=== PATIENT | male | born 1970 | race Caucasian/White ===

== ENCOUNTER 2019-06-14 10:15 | Outpatient (CLI) | payer OTHER, BC, SELFPAY ==
--- NOTE | 2019-06-14 15:00 | DI.RAD_ITS ---
EXAM: XR SHOULDER RT COMPLETE 2+V INDICATION: right shoulder pain s/p injury, m25.511. COMPARISON: No exams were available for comparison TECHNIQUE: 2D digital imaging was performed. FINDINGS: No fracture or dislocation is seen. There is spurring at the AC joint and inferior glenoid. Humeral head is normally positioned. No tendon or joint space calcifications are seen. IMPRESSION: Mild degenerative changes. No acute abnormality. DATA REPOSITORY: RADIATION DOSE DELIVERED:
== END 2019-06-14 10:35 ==
PROVIDERS: PCP Nurse Practitioner; Visit Provider Nurse Practitioner
DX: M25.511 Pain in right shoulder (principal); M19.011 Primary osteoarthritis, right shoulder
CPT/HCPCS: 73030

== ENCOUNTER 2020-05-06 17:08 | Outpatient (REF) | payer BC, SELFPAY ==
[2020-05-08 18:28] LABS: COVID-19 RT-PCR Result NEGATIVE (Negative)
== END 2020-05-06 17:28 ==
LOC: LBN 17:08
PROVIDERS: PCP Nurse Practitioner; Visit Provider Nurse Practitioner Family
DX: Z11.52 Encounter for screening for COVID-19 (principal)
CPT/HCPCS: U0003

== ENCOUNTER 2020-05-08 04:45 | Outpatient (CLI) | payer BC, SELFPAY ==
[2020-05-08 12:59] LABS: Abs Immature Grans 0.01 10^3/uL (0.0-0.06); Absolute Basophil Count 0.03 10^3/uL (0.0-0.2); Absolute Eosinophil Count 0.07 10^3/uL (0.0-0.7); Absolute Lymphocyte Count 1.93 10^3/uL (1.2-3.4); Absolute Monocyte Count 0.45 10^3/uL (0.1-0.8); Absolute Neutrophil Count 2.14 10^3/uL (1.2-6.7); Basophils % 0.6; Eosinophils % 1.5; HCT 40.1 % (40.0-50.0); Immature Grans % 0.2; Lymphocytes % 41.7; MCH 29.5 pg (27.0-33.0); MCHC 34.9 % (32.0-36.0); MCV 84.6 fL (80-95); Monocytes % 9.7; Neutrophils % 46.3; Nucleated RBC 0 %; Platelet Count 195 10^3/uL (130-400); RBC 4.74 10^6/uL (4.36-5.78); RDW 12.2 % (11.8-14.1); RDW-SD 37.1 fL; WBC 4.63 10^3/uL (4.4-10.8)
[2020-05-08 13:38] LABS: Total Iron Binding Capacity 271 ug/dL (250-450)
[2020-05-08 13:44] LABS: Ferritin 253 ng/mL (26-388); TSH (W/Ref FT4) 2.38 uIU/mL (0.36-3.74)
== END 2020-05-08 05:05 ==
PROVIDERS: PCP Nurse Practitioner; Visit Provider Nurse Practitioner Family
DX: R53.83 Other fatigue (principal)
CPT/HCPCS: 36415; 82728; 83550; 84443; 85025

== ENCOUNTER 2020-12-17 16:11 | Outpatient (REF) | payer BC, SELFPAY ==
[2020-12-18 18:37] LABS: PSA, Screening 2.3 ng/mL (0.0-2.5)
== END 2020-12-17 16:12 | disposition home or self-care (01) ==
LOC: LBN 16:11
PROVIDERS: PCP Nurse Practitioner; Visit Provider Nurse Practitioner Gerontology
DX: N40.1 Benign prostatic hyperplasia with lower urinary tract symptoms (principal); Z12.5 Encounter for screening for malignant neoplasm of prostate
CPT/HCPCS: 84153

== ENCOUNTER 2021-04-09 09:31 | Emergency (ER) | payer BC, SELFPAY ==
[2021-04-09 09:38] VITALS: BP 128/83; PULSE 83; RESP 18; TEMP 36.6; O2SAT 96
[2021-04-09 10:06] LABS: Lactate 0.9 mmol/L (0.6-1.4)
[2021-04-09 10:08] LABS: Abs Immature Grans 0.02 10^3/uL (0.0-0.06); Absolute Basophil Count 0.01 10^3/uL (0.0-0.2); Absolute Lymphocyte Count 0.76 10^3/uL (1.2-3.4); Absolute Monocyte Count 0.47 10^3/uL (0.1-0.8); Absolute Neutrophil Count 2.02 10^3/uL (1.2-6.7); Basophils % 0.3; HCT 42.8 % (40.0-50.0); HGB 14.7 g/dL (13.5-17.5); Immature Grans % 0.6; Lymphocytes % 23.2; MCH 29.2 pg (27.0-33.0); MCHC 34.3 % (32.0-36.0); MCV 85.1 fL (80-95); MPV 9.1 fL (8.0-11.0); Monocytes % 14.3; Neutrophils % 61.6; Nucleated RBC 0 %; Platelet Count 106 10^3/uL (130-400); RBC 5.03 10^6/uL (4.36-5.78); RDW-SD 37.2 fL; WBC 3.28 10^3/uL (4.4-10.8)
--- NOTE | 2021-04-09 10:09 | ED.GENADUL_ITS ---
Discharge Plan Disposition Patient Disposition: HOME Condition: Improving Discharge Details Clinical Impression: COVID-19, Acute dehydration, Caffeine withdrawal Primary Care Provider: Latha Salas ED Provider: Mario Adam Home Meds and New Rx's Prescriptions: New ondansetron 4 mg tablet,disintegrating 4 mg PO Q6H PRN (Reason: nausea and vomiting) Qty: 14 RF: 0 Continued tamsulosin [Flomax] 0.4 mg capsule 0.4 mg PO DAILY Qty: 90 RF: 3 Discharge Instructions Instructions: Dehydration (ED), Viral Syndrome (ED) Additional Instructions: Please stay well-hydrated and increase food intake as tolerated. For continued headache feel free to take [id number] Excedrin Migraine as this has caffeine and your caffeine withdrawal may be contributing to your headache symptoms. If you have any new or worsening symptoms, neurological changes, difficulty breathing or further concerns please return to the emergency department for reevaluation. Please remain quarantine until your COVID-19 results are available which is typically 24 to 48 hours. Discharge Data Discharge Date/Time-TO BE ENTERED AT DEPARTURE: 04/09/21 14:11 Medical Decision Making Patient presenting to the emergency department for chief complaint of headache and significant malaise. Patient reports home testing positive Covid and over the last 3 days has had change in taste and smell and now having some nausea with food intake. Physical exam is unremarkable for any respiratory distress or abnormal findings, no meningeal signs, patient is stable and otherwise well in appearance. Plan to check labs and give patient fluids due to concern of dehydration and will treat with NSAIDs and zofran for current symptoms. Review of labs is as expected for COVID-19. Pt reassessed and feels less nausea but STUART remains. Will further hydrate and treat pain. Pt PO challenged and able to tolerated PO intake. After further discussion pt has not had caffeine in 3 days which he normally drinks 2 pots of coffee each day. Plan to treat with Fioricet and DC home. After discussion of diagnosis and plan of care patient has no further needs, questions, or concerns and states clear understanding to return to the emergency department for any worsening symptoms. HPI General Mode of arrival: ambulatory . Date/Time Provider Initiated Documentation: 04/09/21 09:33 . Limitations to Documentation: no limitations . Information obtained by: patient . History of Present Illness 51 year old M presents to the emergency department with the chief complaint of Covid positive Headache and Nausea, described as moderate, with intensity rated at 8. Quality is described as aching and constant, and is localized to the head. Patient reports no radiation. Patient started experiencing this day(s) (4) and it has been constant. No relieving factors improve symptom(s), No exacerbating factors reported . Patient notes fever/chills and loss of appetite; denies cough. Patient did receive the following treatments prior to arrival, NSAID Related Data Home Medications Medication Instructions Recorded Confirmed tamsulosin 0.4 mg capsule 0.4 mg PO DAILY #90 cap 02/25/21 04/09/21 ondansetron 4 mg PO Q6H PRN #14 tab 04/09/21 Previous Rx's Medication Instructions Recorded tamsulosin 0.4 mg capsule 0.4 mg PO DAILY #90 cap 02/25/21 ondansetron 4 mg PO Q6H PRN #14 tab 04/09/21 Allergies Allergy/AdvReac Type Severity Reaction Status Date / Time Penicillins Allergy Unknown Verified 04/09/21 09:42 General Stated Complaint: Nausea/Vomit/Diar TAYO: 3 Review of Systems Constitutional Constitutional: Reports chills, Reports fatigue, Reports headache(s), Reports lethargy, Reports malaise and Denies weakness ENT Ears, Nose, Mouth, and Throat: Reports headache(s), Reports nasal congestion and Denies sore throat Cardiovascular Cardiovascular: Denies chest pain and Denies dyspnea Respiratory Respiratory: Denies chest congestion, Denies cough and Denies dyspnea Gastrointestinal Gastrointestinal: Reports as per HPI, Denies abdominal pain, Reports nausea and Reports vomiting Genitourinary Genitourinary: Denies difficulty urinating Musculoskeletal Musculoskeletal: Denies arthralgias and Denies joint swelling Integumentary/Breasts Skin/Breast: Denies rash Neurologic Neurologic: Denies confusion, Reports headache(s) and Denies weakness Psychiatric Psychiatric: Denies confusion Endocrine Endocrine: Reports fatigue PFSH All Active Problems (Updated 04/09/21 @ 13:13 by Mario Adam NP) COVID-19 (Acute) Acute dehydration (Acute) Caffeine withdrawal (Acute) Erectile dysfunction (Acute) BPH loc w urin obs/LUTS (Acute) Screening for cholesterol level (Acute) Colon cancer screening (Acute) Dysuria (Acute) Cyst, epididymis (Acute) Fatigue (Acute) Tobacco abuse (Acute) Right shoulder pain (Acute) Family History Mother Neoplasm breast CA w/ METS Father Aneurysm ? abd, repaired Thyroid disease Social History Smoking/Tobacco Use Status: Former Tobacco Use Smoking risk assessment performed?: Yes Alcohol Intake: former Drug use: Never Substance use type: does not use Do you feel safe at home: Yes Do you feel safe in your relationship?: Yes Exam Const General: cooperative Orientation: alert, awake and oriented x3 Resp Effort & Inspection: normal respiratory effort and able to speak in complete sentences Auscultation: clear to auscultation bilaterally Cardio Rate: regular rate Rhythm: regular rhythm Heart Sounds: S1 normal and S2 normal GI Palpation: soft, no hepatosplenomegaly, not firm, no guarding, no masses, no pulsatile masses, not rigid, no splenomegaly and nontender Auscultation: normal bowel sounds Neuro General: patient alert, patient awake, patient oriented x3, gait normal, moves all extremities, no meningeal signs and no focal motor deficits Cognition: normal cognition Speech: speech normal Course Vital Signs Vital signs: Vital Signs Temperature 36.6 C 04/09/21 09:38 Pulse 83 04/09/21 09:38 Respiratory Rate 18 04/09/21 09:38 Blood Pressure 128/83 04/09/21 09:38 Pulse Oximetry 96 04/09/21 09:38 Temperature 36.6 C 04/09/21 09:38 Temperature Source Oral 04/09/21 09:38 Pulse 83 04/09/21 09:38 Respiratory Rate 18 04/09/21 09:38 Respiratory Effort Non-Labored 04/09/21 09:43 Blood Pressure 128/83 04/09/21 09:38 Blood Pressure Position Sitting 04/09/21 09:38 Pulse Oximetry 96 04/09/21 09:38 Oxygen Delivery Method Room Air 04/09/21 09:38 Oxygen Flow Rate 0 04/09/21 09:38 Lab/Test Results Lab/Test Results: Laboratory Tests Range/Units 04/09/21 04/09/21 09:51 09:51 WBC (4.4-10.8) 10^3/uL 3.28 L RBC (4.36-5.78) 10^6/uL 5.03 Hgb (13.5-17.5) g/dL 14.7 Hct (40.0-50.0) % 42.8 MCV (80-95) fL 85.1 MCH (27.0-33.0) pg 29.2 MCHC (32.0-36.0) % 34.3 RDW (11.8-14.1) % 12.0 Plt Count (130-400) 10^3/uL 106 L MPV (8.0-11.0) fL 9.1 Immature Gran % 0.6 Neutrophils % 61.6 Lymphocytes % 23.2 Monocytes % 14.3 Eosinophils % 0.0 Basophils % 0.3 Nucleated RBC % % 0 Absolute Neutrophils (1.2-6.7) 10^3/uL 2.02 Absolute Lymphocytes (1.2-3.4) 10^3/uL 0.76 L Absolute Monocytes (0.1-0.8) 10^3/uL 0.47 Absolute Eosinophils (0.0-0.7) 10^3/uL 0.00 Absolute Basophils (0.0-0.2) 10^3/uL 0.01 VBG Lactate (0.6-1.4) mmol/L 0.9
[2021-04-09 10:23] LABS: ALT 19 U/L (16-63); AST 23 U/L (15-37); Albumin 3.6 g/dL (3.4-5.0); Alkaline Phosphatase 49 U/L (46-116); Anion Gap 9.3 mmol/L (3-11); BUN 18 mg/dL (7-18); Bilirubin, Total 0.8 mg/dL (0.2-1.0); CO2 27.7 mmol/L (21.0-32.0); Calcium 8.4 mg/dL (8.5-10.1); Chloride 102 mmol/L (98-107); Glucose 116 mg/dL (74-106); Lipase 151 U/L (73-393); Potassium 3.7 mmol/L (3.5-5.1); Sodium 139 mmol/L (136-145); Total Protein 7.4 g/dL (6.4-8.2)
[2021-04-09] MEDS: Normal Saline 1,000 ML 1000 ML IV ×2 (10:28→11:49)
[2021-04-09] MEDS: Ondansetron 4 MG/2 ML VIAL IVP (10:29)
[2021-04-09] MEDS: Ketorolac 15 MG/ML VIAL IVP (10:29)
[2021-04-09] MEDS: Normal Saline Flush 10 ML SYR IVP ×2 (10:30→11:49)
[2021-04-09] MEDS: ACETAMINOPHEN 1,000 MG/100 ML BTL 400 MG IVPB (11:49)
[2021-04-09 11:58] LABS: Bilirubin Small (Negative); Blood Negative (Negative); Clarity Clear (Clear); Glucose 100 mg/dL (Negative); Ketones 80 mg/dL (Negative); Leukocyte Esterase Negative (Negative); Nitrite Negative (Negative); Specific Gravity >= 1.030 (1.005-1.025)
[2021-04-09 12:05] LABS: Bacteria Negative HPF (Negative); Crystals Rare Amorphous HPF (Negative); Epithelial Cells Rare HPF (Negative); Mucus Moderate (Negative); RBC Negative HPF (0-2); WBC Negative HPF (0-5)
[2021-04-09 12:06] LABS: C & S Indicated? No; Casts 0-2 Hyaline LPF (Negative)
[2021-04-09 12:50] VITALS: BP 119/79; PULSE 77; RESP 16; TEMP 36.4; O2SAT 95
[2021-04-09 14:04] VITALS: BP 118/73; PULSE 66; RESP 16; TEMP 36.6; O2SAT 97
[2021-04-09] MEDS: Butalbital/Acetaminophen/Caffeine 50/325/40 TAB PO (14:06)
[2021-04-10 15:58] LABS: COVID-19 RT-PCR UVMMC Result Positive (Negative)
--- NOTE | 2021-04-12 09:45 | W.ED.FU ---
04/12/21 0946 Attempted to contact patient but phone number listed does not seem to be active. I did take care of patient initially and he had taken to home test that were positive and he already knew he was Covid positive via antigen testing.
== END 2021-04-09 14:11 | disposition home or self-care (01) ==
PROVIDERS: Emergency Provider Nurse Practitioner Family; PCP Nurse Practitioner
DX: U07.1 COVID-19 (principal); E86.0 Dehydration; F15.23 Other stimulant dependence with withdrawal; Z20.822 Contact with and (suspected) exposure to COVID-19; R43.8 Other disturbances of smell and taste; R11.0 Nausea
CPT/HCPCS: 36415; 80053; 83690; 96361; 96365; 96375; 99284; U0003; 81003; 81015; 83605; 85025; J0131; J1885; J2405

== ENCOUNTER 2021-10-28 16:33 | Outpatient (REF) | payer BC, SELFPAY ==
[2021-10-28 22:37] LABS: PSA, Screening 1.9 ng/mL (<=3.5)
== END 2021-10-28 16:34 | disposition home or self-care (01) ==
LOC: LBN 16:33
PROVIDERS: PCP Nurse Practitioner; Visit Provider Nurse Practitioner Gerontology
DX: N40.1 Benign prostatic hyperplasia with lower urinary tract symptoms (principal); Z12.5 Encounter for screening for malignant neoplasm of prostate
CPT/HCPCS: 84153

== ENCOUNTER 2022-02-05 06:10 | Day surgery (SDC) | payer BC, SELFPAY ==
--- NOTE | 2022-02-04 11:00 | PDOC.DSDIS_ITS ---
Discharge Plan Disposition Patient Disposition: HOME Condition: Good Discharge Details Reason For Visit: colon scope Attending Provider: Radha Good Primary Care Provider: Latha Salas Home Meds and New Rx's Prescriptions: Continued tamsulosin [Flomax] 0.4 mg capsule 0.8 mg PO DAILY Qty: 180 3RF Discontinued bisacodyl [Dulcolax (bisacodyl)] 5 mg tablet,delayed release (DR/EC) 5 mg PO ONCE Qty: 4 0RF Rx Instructions: Take according to provider's instructions for colonoscopy prep. polyethylene glycol 3350 17 gram/dose powder 17 g PO ONCE Qty: 238 0RF Rx Instructions: To be taken as directed by prescriber's office for colonoscopy prep. Discharge Instructions Additional Instructions: DSU Colonoscopy Post- Op Instructions Instructions for Everyone who is given Anesthesia: For your safety, please do the following for the next twenty-four (24) hours: *Do Not operate a motor vehicle (car, truck, motorcycle, etc.) *Do Not drink alcoholic beverages or use any recreational drugs for the first 24 hours or while taking pain medications. The medications in your body may have a reaction that can be dangerous. *Do Not make any important decisions or sign any important papers. Findings: minor diverticular Dx Sure you are moving your bowels on a regular basis and not straining to go to the bathroom Follow up: Repeat colonoscopy in 5 years time, due to family Hx Stop smoking! Colon cancer is directly related to the use of tobacco products. This will help to decrease your risk of developing colon cancer. 1. No lifting over 20 pounds or strenuous activity for the first 24 hours after your procedure. After 24 hours there are no restrictions on your activity but you may feel fatigued for a few days. 2. After you arrive home you may have a light meal and return to your normal diet as you can tolerate it without feeling sick to your stomach. 3. You may have a bloated, gaseous feeling in your belly (abdomen) after a colonoscopy. Passing gas and belching will help. Walking or lying down on your left side with your knees flexed may relieve the discomfort. Call the office at [phone] (Office) or [phone] (Hospital) right away if you notice any of the following: a.Vomiting of blood or ?coffee ground stools?. b.Rectal bleeding 1Tbsp, blood clots or continuous bleeding. c.Severe belly (abdominal) pain. d.A hard distended belly (abdomen) and an inability to pass gas. 4. Please don?t expect to have a normal BM (bowel movement) for 2-3 days after your procedure. 5. If there are questions regarding the findings of your procedure, please contact your doctor 6. If you are unable to contact your doctor with a problem, contact the hospital at [phone]. 7. Continue all your regular medications unless directed otherwise. I understand the above instructions and have no questions. Signature of Patient or Adult Escort Name of Responsible Adult Escort Signature of Nurse Date/Time Activity:: see above Diet:: see above Discharge Orders Discharge Orders: Discharge Order (Routine); Ordered 02/04/22 Ordered By: Radha Good
--- NOTE | 2022-02-04 11:01 | W.COLOREPORT ---
Colonoscopy Report Date of procedure: 02/05/22 Pre-op diagnosis general: CRC screening Post-op diagnosis procedure note: other (Very minor diverticular disease confined to the sigmoid colon ) Surgeon: Radha Good Anesthesia Type: General:No Airway Complications: None Disposition: same day Prep: Miralax/Dulcolax Retraction Time: 8 mins Procedure Description: After informed consent was obtained the patient was taken to the procedure room and placed in a left decubitous position. Monitors were applied and a time out was done. The patients name, date of , procedure, allergies to medications and metal in their body was reviewed. The patient was then sedated. Once sedated and comfortable a rectal exam was done. External exam was normal. Internal exam revealed a normal sphincter tone and no palpable masses. The prostate nl. The scope was then introduced and retrofelexed. No internal hemorrhoids were identified. The scope was then advanced to the cecum without difficulty. The TI and appendiceal orifice were identified. The prep was BB PS 3 in all segments for a total of 9 8. The scope was then slowly retracted over 8 minutes back into the rectum. There were no polyps identified today. The mucosa is pink and healthy. He does have minor diverticula confined to the sigmoid colon, with no signs of active bleeding or. The scope was removed and the patient was woken up and taken back to Same day surgery in stable condition. The patient tolerated the procedure well and there were no immediate complications. Follow up: The patient should follow up in 5 years, due to family history, unless they develop changes in bowel habits or other new gastrointestinal complaints.
[2022-02-05 06:29] VITALS: BP 111/84; PULSE 87; RESP 18; TEMP 36.6; O2SAT 99
[2022-02-05] MEDS: Lactated Ringers 1,000 ML 80 ML IV (06:42)
--- NOTE | 2022-02-05 06:46 | W.ANESPRE ---
General Info Date of Service Date Performed: 02/05/22 Height: 5 ft 10 in Weight: 90.7 kg Body Mass Index (BMI): 28.7 Surgical Procedure: Operation Date: 02/05/22 07:35 Proposed Procedure Side Surgeon francisco Good DO Meds Allergies and Home Medications Allergies Allergy/AdvReac Type Severity Reaction Status Date / Time Penicillins Allergy Unknown Verified 02/05/22 06:27 Home Medication Medication Instructions Recorded tamsulosin 0.4 mg capsule (Flomax) 0.8 mg PO DAILY #180 caps 10/28/21 Current Visit Medications: Current Medications Generic Name Dose Route Start Last Admin Trade Name Freq PRN Reason Stop Dose Admin Hyoscyamine Sulfate 0.125 mg 02/04/22 10:59 Hyoscyamine 0.125 Mg Sl/Oral/Chew SL DIRECTED PRN Ringer's Solution 1,000 mls @ 80 mls/hr 02/05/22 06:00 02/05/22 06:42 IV 02/05/22 23:59 80 mls/hr INFUSION KURT Administration IV Miscellaneous Supplies 1 each 02/05/22 06:00 Iv Access IV 02/05/22 23:59 DIRECTED KURT Ondansetron HCl 4 mg 02/04/22 10:59 Ondansetron 4 Mg/2 Ml Vial IVP Q4H PRN PRN Nausea / Vomiting Sodium Chloride 0 ml 02/05/22 06:00 Normal Saline Flush 10 Ml Syr IV 02/05/22 23:59 PRN PRN Sodium Chloride 0 ml 02/05/22 06:00 Normal Saline 10 Ml Vial IJ 02/05/22 23:59 DIRECTED PRN Sterile Water 0 ml 02/05/22 06:00 Water,Injection,Sterile 10 Ml Vial IJ 02/05/22 23:59 DIRECTED PRN PFSH Active Problems Active Problems: Problem Status Onset Code Scrotal pain N50.82 COVID-19 U07.1 Erectile dysfunction N52.9 BPH loc w urin obs/LUTS N40.1 Screening for cholesterol level Z13.220 Colon cancer screening Z12.11 Dysuria R30.0 Cyst, epididymis N50.3 Fatigue R53.83 Tobacco abuse Z72.0 Right shoulder pain M25.511 Tobacco Smoking/Tobacco Use Status: Current-Occasional Tobacco Type: cigarettes Alcohol Alcohol Intake: never Substance Use Substance use: Never Substance use type: does not use Vital Signs and Lab Results Vital Signs Most Recent Vital Signs in EMR: Most Recent Vital Signs Temp Pulse Resp BP Pulse Ox 36.6 C 87 18 111/84 99 02/05/22 06:29 02/05/22 06:29 02/05/22 06:29 02/05/22 06:29 02/05/22 06:29 Lab Results Blood Type / Crossmatch: No Data to Display Complete Blood Count: No Data to Display Complete Metabolic Panel: No Data to Display Liver Function Panel: No Data to Display Coagulation Panel: No Data to Display Cardiac Panel: No Data to Display Arterial Blood Gas: No Data to Display Venous Blood Gas: No Data to Display Pancreas Panel: No Data to Display Thyroid Panel: No Data to Display Infectious Disease: No Data to Display Blood Cultures: No Data to Display Toxicology Panel: No Data to Display Anesthesia Assessment and Plan Anesthesia History Personal History: No History of Anesthesia Complications Family History: Family History Unknown Exercise Tolerance Exercise Tolerance: Metabolic Equivalents>4 Pertinent Negatives Pertinent Negatives: No Symptoms of GERD Cardiac & Pulmonary Exam Cardiac Exam: Normal S1/S2 Heart Sounds Pulmonary Exam: Clear Bilateral Breath Sounds Implantable Cardiac Device Does patient have a Pacemaker or an ICD?: No Airway Exam Known Difficult Airway: No Mallampati Class: 2 Mouth Opening: Normal (> 3cm) Thyromental Distance: Greater than 3 cm Neck Range of Motion: Full ROM Neck Circumference: Normal Teeth Condition: Normal Dentition ASA Classification ASA Score: ASA 2 Emergency Case?: No NPO Status NPO Status: NPO Clears >2 hours, Solids >8 hours Anesthesia Plan Resuscitation Status: Full Code Anesthesia Technique: General Anesthesia Airway Planned: Natural Airway Monitors Used: Standard Monitors
[2022-02-05 06:51] VITALS: BMI 28.7
[2022-02-05 08:09] VITALS: BP 114/85; PULSE 83; RESP 16; TEMP 36.2; O2SAT 97
--- NOTE | 2022-02-05 08:24 | W.ANESPOSTOP ---
Postoperative Evaluation Date, Time and Location Date Performed: 02/05/22 Time Performed: 08:24 Patient Location: Day Surgery Unit Vital Signs Most Recent Imported Vital Signs: Most Recent Vital Signs Temp Pulse Resp BP Pulse Ox 36.2 C L 83 16 114/85 97 02/05/22 08:09 02/05/22 08:09 02/05/22 08:09 02/05/22 08:09 02/05/22 08:09 Pain Score Most Recent Pain Score: Most Recent Pain Score Pain Level 1 02/05/22 08:09 Assessment Mental Status: Awake (Alert & Oriented to Patient Baseline) Airway and Respiratory Function: Patent airway with normal (patient baseline) respiratory exam Cardiovascular Function: Hemodynamically Stable Hydration Status: Adequately Hydrated Nausea & Vomiting: No Nausea or Vomiting Pain: Pt. Denies Any Pain Peripheral Nerve Block: Patient did not receive a nerve block
[2022-02-05 08:40] VITALS: BP 107/84; PULSE 66; RESP 18; TEMP 36.5; O2SAT 98
== END 2022-02-05 08:50 | disposition home or self-care (01) ==
PROVIDERS: PCP Nurse Practitioner; Visit Provider Surgery
PROC: 0DJD8ZZ Inspection of Lower Intestinal Tract, Via Natural or Artificial Opening Endoscopic (ICD-10-PCS; CPT 45378; principal; 2022-02-05 07:30)
DX: Z12.11 Encounter for screening for malignant neoplasm of colon (principal)
CPT/HCPCS: 45378

== ENCOUNTER 2022-08-26 11:23 | Day surgery (SDC) | payer BC, SELFPAY ==
[2022-08-26] VITALS (9 sets, daily range): BP systolic 95–126; BP diastolic 56–84; PULSE 51–77; RESP 13–16; TEMP 36.4–37; O2SAT 96–99; BMI 28.5
[2022-08-26] MEDS: Lactated Ringers 1,000 ML 80 ML IV (11:47)
--- NOTE | 2022-08-26 11:56 | W.PM.HP.N ---
Date of service: 08/26/22 Time of Service: 12:02 Assessment and Plan Assessment and plan (1) Cyst, epididymis: Status: Acute Assessment and plan: For excision of his multiple symptomatic epididymal cysts. I will perform a dorsal penile nerve block along with the surgical procedure History of Present Illness History of Present Illness Chief Complaint: Scrotal pain Narrative: This is a 52-year-old gentleman who has a history of chronic right-sided scrotal discomfort. He estimates the discomfort has been present for over 5 years. He does not recall any specific trauma to the area. He had not had previous scrotal surgery. He was found to have small epididymal cysts initially. More recently, his pain has worsened and on ultrasound, the cysts are increasing in size. On palpation, his trigger point seems to be associated with these epididymal cysts. He does have discomfort in the scrotum and groin. He will also have some pain along the dorsum of the penis. He presents for spermatocelectomy/epididymal cyst removal. Review of Systems Narrative: No fevers or chills No vision change or dysphasia No diabetes or thyroid dysfunction No shortness of breath, cough or hemoptysis No chest pain or palpitations No nausea, vomiting, hepatitis, ulcers, jaundice No seizures, strokes or peripheral neuropathy No bleeding disorders or anemia No gout PFSH All Active Problems Scrotal pain (Acute) COVID-19 (Acute) Erectile dysfunction (Acute) BPH loc w urin obs/LUTS (Acute) Screening for cholesterol level (Acute) Colon cancer screening (Acute) Dysuria (Acute) Cyst, epididymis (Acute) Fatigue (Acute) Tobacco abuse (Acute) Right shoulder pain (Acute) Family History Mother Neoplasm breast CA w/ METS Father Aneurysm ? abd, repaired Thyroid disease Social History Smoking/Tobacco Use Status: Never Smoking risk assessment performed?: Yes Alcohol Intake: never Drug use: Never Substance use type: does not use Do you feel safe at home: Yes Do you feel safe in your relationship?: Yes Meds Allergies and Home Medications Allergies Allergy/AdvReac Type Severity Reaction Status Date / Time Penicillins Allergy Unknown Verified 08/26/22 11:32 Home Medications Medication Instructions Recorded Confirmed Type tamsulosin 0.4 mg capsule (Flomax) 0.8 mg PO DAILY #180 caps 08/02/22 08/26/22 Rx Exam Const General: cooperative Neck Neck: supple Resp Effort & Inspection: normal respiratory effort Auscultation: clear to auscultation bilaterally Cardio Rate: regular rate Rhythm: regular rhythm GI Palpation: soft and no masses Scrotum: other (multiple masses above right testis) Neuro General: patient alert, patient awake and patient oriented x3 Results Last Vital Signs Temp 37.0 C 08/26/22 11:33 Pulse 76 08/26/22 11:33 Resp 16 08/26/22 11:33 BP 126/76 08/26/22 11:33 Pulse Ox 97 08/26/22 11:33 Time Spent Time spent with Patient: <40 minutes Time was spent: obtaining and/or reviewing separately otained hiistory, counseling the patient and other
[2022-08-26] MEDS: CIPROFLOXACIN 400 MG/200 ML BAG 200 MG IVPB (11:59)
--- NOTE | 2022-08-26 12:53 | W.ANESPRE ---
General Info Date of Service Date Performed: 08/26/22 Height: 5 ft 10 in Weight: 90.2 kg Body Mass Index (BMI): 28.5 Surgical Procedure: Operation Date: 08/26/22 13:10 Proposed Procedure Side Surgeon p Epididymectomy Right Swapnil Shin MD Meds Allergies and Home Medications Allergies Allergy/AdvReac Type Severity Reaction Status Date / Time Penicillins Allergy Unknown Verified 08/26/22 11:32 Home Medication Medication Instructions Recorded tamsulosin 0.4 mg capsule (Flomax) 0.8 mg PO DAILY #180 caps 08/02/22 Current Visit Medications: Current Medications Generic Name Dose Route Start Last Admin Trade Name Freq PRN Reason Stop Dose Admin Ringer's Solution 1,000 mls @ 80 mls/hr 08/26/22 06:00 08/26/22 11:47 IV 09/24/22 23:59 80 mls/hr INFUSION KURT Administration Ciprofloxacin 400 mg in 200 mls @ 200 mls/hr 08/26/22 06:00 08/26/22 11:59 Cipro I.V. IVPB 08/26/22 18:00 200 mls/hr PREOP KURT Administration IV Miscellaneous Supplies 1 each 08/26/22 06:00 Iv Access IV 09/24/22 23:59 DIRECTED KURT Sodium Chloride 0 ml 08/26/22 06:00 Normal Saline Flush 10 Ml Syr IV 09/24/22 23:59 PRN PRN Sodium Chloride 0 ml 08/26/22 06:00 Normal Saline 10 Ml Vial IJ 09/24/22 23:59 DIRECTED PRN Sterile Water 0 ml 08/26/22 06:00 Water,Injection,Sterile 10 Ml Vial IJ 09/24/22 23:59 DIRECTED PRN PFSH Active Problems Active Problems: Problem Status Onset Code Scrotal pain N50.82 COVID-19 U07.1 Erectile dysfunction N52.9 BPH loc w urin obs/LUTS N40.1 Screening for cholesterol level Z13.220 Colon cancer screening Z12.11 Dysuria R30.0 Cyst, epididymis N50.3 Fatigue R53.83 Tobacco abuse Z72.0 Right shoulder pain M25.511 Tobacco Smoking/Tobacco Use Status: Never Alcohol Alcohol Intake: never Substance Use Substance use: Never Substance use type: does not use Vital Signs and Lab Results Vital Signs Most Recent Vital Signs in EMR: Most Recent Vital Signs Temp Pulse Resp BP Pulse Ox 37.0 C 76 16 126/76 97 08/26/22 11:33 08/26/22 11:33 08/26/22 11:33 08/26/22 11:33 08/26/22 11:33 Lab Results Blood Type / Crossmatch: No Data to Display Complete Blood Count: No Data to Display Complete Metabolic Panel: No Data to Display Liver Function Panel: No Data to Display Coagulation Panel: No Data to Display Cardiac Panel: No Data to Display Arterial Blood Gas: No Data to Display Venous Blood Gas: No Data to Display Pancreas Panel: No Data to Display Thyroid Panel: No Data to Display Infectious Disease: No Data to Display Blood Cultures: No Data to Display Toxicology Panel: No Data to Display Anesthesia Assessment and Plan Anesthesia History Personal History: No History of Anesthesia Complications Family History: No Family History of Anesthesia Complications Exercise Tolerance Exercise Tolerance: Metabolic Equivalents>4 Pertinent Negatives Pertinent Negatives: No Symptoms of GERD Cardiac & Pulmonary Exam Cardiac Exam: Normal S1/S2 Heart Sounds Pulmonary Exam: Clear Bilateral Breath Sounds Implantable Cardiac Device Does patient have a Pacemaker or an ICD?: No Airway Exam Known Difficult Airway: No Mallampati Class: 1 Mouth Opening: Normal (> 3cm) Thyromental Distance: Greater than 3 cm Neck Range of Motion: Full ROM Neck Circumference: Normal Teeth Condition: Normal Dentition ASA Classification ASA Score: ASA 2 Emergency Case?: No NPO Status NPO Status: NPO Clears >2 hours, Solids >8 hours Anesthesia Plan Resuscitation Status: Full Code Anesthesia Technique: General Anesthesia Airway Planned: LMA Monitors Used: Standard Monitors
[2022-08-26] MEDS: Bupivacaine 0.25% Pres-Free 30 ML VIAL (13:50)
--- NOTE | 2022-08-26 13:58 | W.PM.DSUDISC ---
Date of service: 08/26/22 Time of Service: 14:06 Discharge Plan Disposition Condition: Stable Discharge Details Reason For Visit: spermatocelectomy Attending Provider: Swapnil Shin Primary Care Provider: Latha Salas Home Meds and New Rx's Prescriptions: New tramadol 50 mg tablet 50 mg PO Q6H PRNQty: 20 0RF Rx Instructions: may take with tylenol and NSAIDS No Action tamsulosin [Flomax] 0.4 mg capsule 0.8 mg PO DAILY Qty: 180 3RF Discharge Instructions Additional Instructions: ice pack to scrotum while awake (bag of frozen peas works well) wear scrotal support/tight underwear to help decrease post operative swelling may shower 08/27, remove underlying fluff dressing then replace scrotal support follow up appt 1 to 2 weeks Activity:: no lifting over 20 pounds until followup visit Remove Dressings/Wound Care:: 24 hours Shower/Bathe:: 24 hours Diet:: As Tolerated DS: Diagnosis Discharge Diagnosis (1) Cyst, epididymis: Status: Acute
--- NOTE | 2022-08-26 14:06 | W.PM.OP ---
Date of service: 08/26/22 Time of Service: 14:06 Operative Note Operative Note DATE OF PROCEDURE: 08/26/22 PRE-OP DIAGNOSIS: Multicystic right spermatocele POST-OP DIAGNOSIS: same PROCEDURE: Right spermatocelectomy SURGEON: Swanpil Shin ANESTHESIA TYPE: Local By Surgeon and General LMA/ETT Refer to Anesthesia Record ESTIMATED BLOOD LOSS: 10 PATHOLOGY: none sent COMPLICATIONS: None Patient was transported to: PACU Patient's condition: stable Implants: none Indications: This is a 52-year-old gentleman who has a greater than 5-year history of right sided scrotal and inguinal pain. He was identified as having right spermatoceles. Recently, the spermatoceles have increased in size and his pain has increased as well. He presents for spermatocelectomy. Findings: Multicystic spermatocele Procedure Description: The patient was brought to the operating room on 08/26/2022. After successful induction of general anesthesia, he was placed in the supine position. His lower abdomen and genitalia were prepped and draped. A scrotal field block was performed using quarter percent Marcaine without epinephrine. A right transverse scrotal incision was made and the incision was extended down through the subcutaneous tissue until the dartos muscle was encountered. The dartos muscle was divided which allowed us to visualize the testis still within the tunica vaginalis. The testis along with the tunica was then delivered through the scrotal incision. The tunica was opened anteriorly to expose the testis and epididymis. A multicystic structure was attached to the epididymis. The testis itself appeared normal. Using sharp and blunt dissection, we were able to dissect the multicystic structure off of the epididymis. Because of the benign appearance of the structure, we did not send this spermatocele to pathology for permanent section. Once the cysts were completely dissected free, the base of the cysts were cauterized with the Bovie. The tunica vaginalis was reapproximated behind the testis using a simple interrupted 3-0 chromic suture. A spermatic cord block was then performed with quarter percent Marcaine. Finally a dorsal penile nerve block was performed using quarter percent Marcaine. The testis was inspected and hemostasis appeared good. The testis was delivered back within the left hemiscrotum. The dartos muscle was reapproximated using a running 3-0 chromic suture. The scrotal skin was closed with simple interrupted 4-0 chromic sutures. Dermabond was applied to the incision site. A fluff dressing was applied followed by a scrotal support. The patient tolerated this procedure well with no complications. He was taken to the recovery room in stable condition.
--- NOTE | 2022-08-26 14:38 | W.ANESPOSTOP ---
Postoperative Evaluation Date, Time and Location Date Performed: 08/26/22 Time Performed: 14:38 Patient Location: PACU Vital Signs Most Recent Imported Vital Signs: Most Recent Vital Signs Temp Pulse Resp BP Pulse Ox 36.7 C 71 15 97/60 L 98 08/26/22 14:28 08/26/22 14:28 08/26/22 14:28 08/26/22 14:28 08/26/22 14:28 Pain Score Most Recent Pain Score: Most Recent Pain Score Pain Level 1 08/26/22 11:33 Assessment Mental Status: Awake (Alert & Oriented to Patient Baseline) Airway and Respiratory Function: Patent airway with normal (patient baseline) respiratory exam Cardiovascular Function: Hemodynamically Stable Hydration Status: Adequately Hydrated Nausea & Vomiting: No Nausea or Vomiting Pain: Pt. Denies Any Pain Peripheral Nerve Block: Patient did not receive a nerve block
== END 2022-08-26 15:45 | disposition home or self-care (01) ==
PROVIDERS: PCP Nurse Practitioner; Visit Provider Urology
PROC: (CPT 54840; principal; 2022-08-26 13:00)
DX: N43.42 Spermatocele of epididymis, multiple (principal); N40.1 Benign prostatic hyperplasia with lower urinary tract symptoms; F17.210 Nicotine dependence, cigarettes, uncomplicated; R30.0 Dysuria
CPT/HCPCS: 54840; J0744; J1100; J1885; J2250; J2405; J2704